=== PATIENT | female | born 1935 | race African-American/Black ===

== ENCOUNTER 2019-02-08 16:56 | Emergency (ER) | payer MEDICARE, OTHER ==
[~2019-02-08] VITALS: Ht 157.5 cm; Wt 74.4 kg
[~2019-02-08 16:56] MED LIST: AMLO10TA7 PO; ATOR40TA PO; MELO-107 PO; PENT400T12 PO
--- NOTE | 2019-02-08 16:56 | NUR ---
PT BIBFAMILY FOR LT FEMORAL BLEED AFTER PROCEDURE; PT AAOX4, PT ON MONITOR ,VSS, NAD NOTED, PENDING ER PROVIDER EVAL
[2019-02-08 18:11] LABS: BASOPHILS % (AUTO) 0.6 % (0.0-2.0); HEMATOCRIT 29 % (33-45); HEMOGLOBIN 9.6 g/dL (11.5-14.8); LYMPHOCYTES # (AUTO) 1.3 /CMM (0.8-4.8); LYMPHOCYTES % (AUTO) 21.7 % (20.0-44.0); MEAN CORPUSCULAR HGB CONC 33 g/dl (31.0-36.0); MEAN CORPUSCULAR VOLUME 92 fL (82-100); MONOCYTES # (AUTO) 0.5 /CMM (0.1-1.30); MONOCYTES % (AUTO) 7.7 % (2.0-12.0); NEUTROPHILS # (AUTO) 4.1 /CMM (1.8-8.9); PLATELET COUNT (AUTO) 135 /CMM (150-450); RED BLOOD CELL COUNT(AUTO) 3.17 MIL/uL (4.0-5.2)
[2019-02-08 18:17] LABS: CARBON DIOXIDE 28 mmol/L (21-32); CHLORIDE 111 mmol/L (98-107); CREATININE 1.1 mg/dL (0.6-1.3); GLUCOSE 202 mg/dL (74-106); SODIUM SERUM 144 mmol/L (136-145); UREA NITROGEN, BLOOD 20 mg/dL (7-18)
[2019-02-08 23:10] VITALS: BP 149/60
--- NOTE | 2019-02-08 23:10 | NUR ---
Patient discharged to home in stable condition. Written and verbal after care instructions given. Patient verbalizes understanding of instruction.
[2019-02-08 23:12] LABS: BASOPHILS % (AUTO) 0.8 % (0.0-2.0); EOSINOPHILS % (AUTO) 4.3 % (0.0-6.0); HEMATOCRIT 26 % (33-45); HEMOGLOBIN 8.8 g/dL (11.5-14.8); LYMPHOCYTES # (AUTO) 1.5 /CMM (0.8-4.8); MEAN CORPUSCULAR HGB CONC 34 g/dl (31.0-36.0); MEAN CORPUSCULAR VOLUME 91 fL (82-100); MONOCYTES # (AUTO) 0.4 /CMM (0.1-1.30); MONOCYTES % (AUTO) 7.9 % (2.0-12.0); NEUTROPHILS # (AUTO) 3.4 /CMM (1.8-8.9); PLATELET COUNT (AUTO) 134 /CMM (150-450); RED BLOOD CELL COUNT(AUTO) 2.84 MIL/uL (4.0-5.2); WHITE BLOOD COUNT (AUTO) 5.6 K/uL (4.3-11.0)
== END 2019-02-08 23:10 | disposition home or self-care (01) ==
LOC: ER 16:56
DX: T82.838A Hemorrhage due to vascular prosthetic devices, implants and grafts, initial encounter (principal); I10 Essential (primary) hypertension; E11.9 Type 2 diabetes mellitus without complications; M19.90 Unspecified osteoarthritis, unspecified site; Z98.890 Other specified postprocedural states; Z79.899 Other long term (current) drug therapy
CPT/HCPCS: 36415; 76882; 80048; 85025 ×2; 85730; 99284; A4606

== ENCOUNTER 2020-04-06 10:56 | Inpatient (IN) | payer MEDICARE, OTHER ==
[~2020-04-06] VITALS: Ht 162.6 cm; Wt 73.9 kg
[~2020-04-06 10:56] MED LIST changes: -PENT400T12 PO; +PENT400T17 PO
--- NOTE | 2020-04-06 11:05 | NUR ---
PT BIB SELF C/O "Wound on Right lower leg xcouple months NOT healing" PT IS AAOX4, NOT IN RESPIRATORY DISTRESS, HOOKED TO BARIATRIC NURSE, KEPT RESTED AND COMFORTABLE, WILL CONTINUE TO MONITOR.
--- NOTE | 2020-04-06 11:20 | NUR ---
PT SEEN AND EXAMINED BY .
--- NOTE | 2020-04-06 11:30 | NUR ---
IV LINE ESTABLISHED BLOOD DRAWN AND SENT TO LAB.
[2020-04-06 11:35] LABS: BASOPHILS # (AUTO) 0.1 /CMM (0.0-0.2); BASOPHILS % (AUTO) 0.8 % (0.0-2.0); EOSINOPHILS % (AUTO) 3.8 % (0.0-6.0); HEMATOCRIT 34 % (33-45); HEMOGLOBIN 11.3 g/dL (11.5-14.8); LYMPHOCYTES # (AUTO) 1.7 /CMM (0.8-4.8); LYMPHOCYTES % (AUTO) 22.2 % (20.0-44.0); MEAN CORPUSCULAR HGB CONC 33 g/dl (31.0-36.0); MEAN CORPUSCULAR VOLUME 93 fL (82-100); MONOCYTES # (AUTO) 0.5 /CMM (0.1-1.30); MONOCYTES % (AUTO) 6.6 % (2.0-12.0); NEUTROPHILS # (AUTO) 5.2 /CMM (1.8-8.9); NEUTROPHILS % (AUTO) 66.6 % (43.0-81.0); PLATELET COUNT (AUTO) 163 /CMM (150-450); RED BLOOD CELL COUNT(AUTO) 3.68 MIL/uL (4.0-5.2); WHITE BLOOD COUNT (AUTO) 7.9 K/uL (4.3-11.0)
--- NOTE | 2020-04-06 11:35 | NUR ---
URINAL GIVEN BUT UNABLE TO PROVIDE URINE SPECIMEN THIS TIME.
--- NOTE | 2020-04-06 11:40 | NUR ---
WOUND CLEANING AND DRESSING DONE.
[2020-04-06 11:48] LABS: ALBUMIN 3.1 g/dL (3.4-5.0); BILIRUBIN,DIRECT 0.1 mg/dL (0.0-0.2); BILIRUBIN,TOTAL 0.5 mg/dL (0.2-1.0); CALCIUM, SERUM 9.2 mg/dL (8.5-10.1); CREATININE 1.3 mg/dL (0.6-1.3); POTASSIUM 4.5 mmol/L (3.5-5.1)
--- NOTE | 2020-04-06 11:50 | NUR ---
HUMAN RESOURCES MGR AT BEDSIDE FOR XRAY.
[2020-04-06] MEDS ORDERED: ATOR40TA PO (12:05)
[2020-04-06] MEDS ORDERED: AMLO10TA7 PO (12:05)
[2020-04-06] MEDS ORDERED: CLOP75TA15 PO (12:05)
[2020-04-06] MEDS ORDERED: GABA-534 PO (12:05)
--- NOTE | 2020-04-06 12:08 | NUR ---
PAGED [facility].
[2020-04-06] MEDS ORDERED: PIPERACILLIN /TAZOBACTAM 3.375 G in IV D5W 50 ML IV ONE (12:30)
[2020-04-06] MEDS ORDERED: VANCOMYCIN 1 GM in IV D5W 250 ML IV ONE (12:30)
--- NOTE | 2020-04-06 13:08 | NUR ---
COVID SWAB OBTAINED AND SENT TO LAB.
[2020-04-06 16:00] VITALS: BP 160/60
--- NOTE | 2020-04-06 16:00 | NUR ---
REPORT GIVEN TO LAURA RITTER FOR ANSHU.
--- NOTE | 2020-04-06 16:01 | NUR ---
NURSING SUP GAVE 116-1.
--- NOTE | 2020-04-06 16:19 | NUR ---
FILEMON ELECTRONEURODIAGNOSTIC TECHNOLOGIST AT BEDSIDE FOR EVAL.
[2020-04-06] MEDS ORDERED: MAGNESIUM HYDROXIDE 30 ML UDC PO PRN (17:30)
[2020-04-06] MEDS ORDERED: DEXTROSE 50%-WATER 50 ML DISP.SYRIN IV PRN (17:30)
[2020-04-06] MEDS ORDERED: Z GUARD REMEDY 2 OZ OINT TP PRN (17:30)
[2020-04-06] MEDS ORDERED: ZOLPIDEM TARTRATE 5 MG TABLET PO PRN (17:30)
[2020-04-06] MEDS ORDERED: HYDROCODONE/APAP 5/325MG TABLET PO PRN (17:30)
[2020-04-06] MEDS ORDERED: ACETAMINOPHEN 325 MG TABLET PO PRN (17:30)
[2020-04-06] MEDS ORDERED: ONDANSETRON HCL/PF 4 MG/2 ML VIAL IVP PRN (17:30)
[2020-04-06] MEDS ORDERED: FEE PK DOSING 1 MIN EA MC ONE (17:57)
[2020-04-06] MEDS: GABAPENTIN 300 MG CAPSULE PO SCH (18:15)
[2020-04-06] MEDS: BLOOD SUGAR DIAGNOSTIC 1 EACH STRIP IN SCH ×2 (18:15→21:31)
[2020-04-06] MEDS: ATORVASTATIN 40 MG TABLET PO SCH (18:15)
[2020-04-06] MEDS: ZOSYN IVPB 2.25 G in IV D5W 50ml IV SCH ×2 (18:26→23:25)
[2020-04-06] MEDS: INSULIN REGULAR, HUMAN 100 UNIT/ML 3 ML VIAL SQ PRN ×2 (18:26→21:31)
[2020-04-06] MEDS ORDERED: IV NS 0.9% 250 ML IV PRN (18:30)
[2020-04-06] MEDS ORDERED: IV NS 0.9% 250 ML IV ONE (18:30)
--- NOTE | 2020-04-06 18:52 | NUR ---
Patient arrived via stretcher from ED. Denies any discomfort. Blood Sugar and blood pressure checked. right lower leg wound cleansed and applied dressing. IV intact , ATB started. Patient eating dinner with good appetite. Safety measures provided. Will cont to monitor
--- NOTE | 2020-04-06 19:20 | NUR ---
RN OPENING TELE NOTES RECEIVED PT ON BED AWAKE A/0 X 3 ON RA TOLERATING WELL ON SPO2@ 96% ON TELE MONITOR OF SR 60'S- 70'S NO PAIN COMPLAINT AT THIS TIME, WITH IV LAC # 20 PATENT AND FLUSHED NO INFILTRATION NOTED ON DROPLET ISOLATION TO R/O COVID 19, SAFETY MEASURE MAINTAINED BED ON LOWEST POSITION AND LOCK SIDE RAILS UP X2 CALL LIGHT WITHIN REACH WILL CONT TO MONITOR THE PT
[2020-04-06 20:00] VITALS: BP 167/79
[2020-04-06] MEDS: hydrALAZINE HCL IV 20 MG VIAL IV PRN (22:01)
[2020-04-07] VITALS: BP 139/71
[2020-04-07] MEDS: hydrALAZINE HCL IV 20 MG VIAL IV PRN ×2 (03:55→15:18)
[2020-04-07 04:00] VITALS: BP 171/75
[2020-04-07] MEDS: ZOSYN IVPB 2.25 G in IV D5W 50ml IV SCH ×4 (05:32→23:25)
--- NOTE | 2020-04-07 06:34 | NUR ---
RN CLOSING NOTES PT SLEEPING ON BED NO SIGN AND SYMPTOMS OF RESPIRATORY DISTRESS SPO2>95%, ON TELE MONITOR WITH READING SR 80'S NO PAIN COMPLAINT DROPLET ISOLATION MAINTAINED FOR R/O COVID PENDING RESULT NO SIGNIFICANT CHANGES ON CONDITION NOTED ALL NEEDS ATTENDED SAFETY MEASURE MAINTAINED CALL LIGHT WITHIN REACH WILL ENDORSED TO AM SHIFT NURSE
[2020-04-07] MEDS: BLOOD SUGAR DIAGNOSTIC 1 EACH STRIP IN SCH ×4 (06:58→22:17)
[2020-04-07] MEDS: INSULIN REGULAR, HUMAN 100 UNIT/ML 3 ML VIAL SQ PRN ×3 (06:59→22:19)
[2020-04-07 07:20] LABS: BASOPHILS # (AUTO) 0.1 /CMM (0.0-0.2); BASOPHILS % (AUTO) 0.7 % (0.0-2.0); EOSINOPHILS % (AUTO) 4.5 % (0.0-6.0); HEMATOCRIT 34 % (33-45); HEMOGLOBIN 11.3 g/dL (11.5-14.8); LYMPHOCYTES # (AUTO) 2.1 /CMM (0.8-4.8); LYMPHOCYTES % (AUTO) 26.2 % (20.0-44.0); MEAN CORPUSCULAR HGB CONC 33 g/dl (31.0-36.0); MEAN CORPUSCULAR VOLUME 93 fL (82-100); MONOCYTES # (AUTO) 0.5 /CMM (0.1-1.30); MONOCYTES % (AUTO) 6.3 % (2.0-12.0); NEUTROPHILS % (AUTO) 62.3 % (43.0-81.0); PLATELET COUNT (AUTO) 138 /CMM (150-450); RED BLOOD CELL COUNT(AUTO) 3.72 MIL/uL (4.0-5.2)
[2020-04-07 07:45] LABS: CALCIUM, SERUM 8.9 mg/dL (8.5-10.1); CREATININE 1.1 mg/dL (0.6-1.3); MAGNESIUM 1.9 mg/dL (1.8-2.4); PHOSPHORUS 2.4 mg/dL (2.5-4.9); POTASSIUM 3.6 mmol/L (3.5-5.1)
[2020-04-07 08:00] VITALS: BP 132/68
--- NOTE | 2020-04-07 08:00 | NUR ---
digital proofing and platemaker notes patient in bed, not in acute distress. denies any pain or discomfort. Breakfast taken with good appetite. Safety measures maintained at all times. No s/s of hypo/hyperglycemia noted
[2020-04-07] MEDS: AMLODIPINE BESYLATE 5 MG TABLET PO SCH (09:21)
[2020-04-07] MEDS: CLOPIDOGREL BISULFATE 75 MG TABLET PO SCH (09:21)
[2020-04-07 12:00] VITALS: BP 169/60
[2020-04-07] MEDS ORDERED: NEUTRA PHOS 1 POWD.PACKET PO ONE (12:00)
[2020-04-07] MEDS: VANCOMYCIN HCL 0.75 GM in IV D5W 250 ML IV SCH (13:13)
[2020-04-07 16:00] VITALS: BP 121/60
[2020-04-07] MEDS: GABAPENTIN 300 MG CAPSULE PO SCH (17:20)
[2020-04-07] MEDS: ATORVASTATIN 40 MG TABLET PO SCH (17:20)
--- NOTE | 2020-04-07 19:29 | NUR ---
nurse ob notes Patient in bed, not in acute distress. Denies any pain or discomfort, All needs attended. Safety measures intact. Dinner taken with good appetite. Endorsed to assistant shift supervisor RN
--- NOTE | 2020-04-07 19:35 | NUR ---
RN OPENING NOTES PATIENT RECEIVED RESTING IN BED A/O X 4. STABLE ON RA WITH BREATHING EVEN AND UNLABORED, NO SOB NOTED. NO SIGNS OF ACUTE DISTRESS. NO COMPLAINTS OF PAIN OR DISCOMFORT. IV LOCATED ON LFA #20. SAFETY PRECAUTIONS IN PLACE WITH BED IN LOWEST POSITION, CALL LIGHT WITHIN REACH BREAKS ON, SIDE RAILS UP. WILL CONTINUE TO MONITOR THROUGHOUT THE NIGHT.
[2020-04-07 20:00] VITALS: BP 141/64
[2020-04-08 04:00] VITALS: BP 152/76
[2020-04-08] MEDS: ZOSYN IVPB 2.25 G in IV D5W 50ml IV SCH ×3 (05:25→17:39)
--- NOTE | 2020-04-08 06:51 | NUR ---
RN CLOSING NOTES PATIENT RESTING IN BED A/O X 4. STABLE ON RA WITH BREATHING EVEN AND UNLABORED, NO SOB NOTED. NO SIGNS OF ACUTE DISTRESS. NO COMPLAINTS OF PAIN OR DISCOMFORT. IV LOCATED ON [facility] #20. SAFETY PRECAUTIONS IN PLACE WITH BED IN LOWEST POSITION, CALL LIGHT WITHIN REACH BREAKS ON, SIDE RAILS UP. PATIENT WAS KEPT CLEAN AND DRY THROUGHOUT THE NIGHT, ALL NEEDS ATTENDED TO. WILL ENDORSE TO ONCOMING SHIFT ABOUT ANSHU.
[2020-04-08] MEDS: BLOOD SUGAR DIAGNOSTIC 1 EACH STRIP IN SCH ×4 (06:53→23:03)
[2020-04-08 07:26] LABS: CALCIUM, SERUM 8.9 mg/dL (8.5-10.1); CREATININE 1.1 mg/dL (0.6-1.3); POTASSIUM 3.7 mmol/L (3.5-5.1)
[2020-04-08 08:00] VITALS: BP 151/75
--- NOTE | 2020-04-08 08:00 | NUR ---
RN OPENING NOTES RECEIVED PT. IN BED. PT. A&OX4. PT. ON ROOM AIR, SATURATING WELL AT 95%. PT. IV ACCESS IN L. HAND, SALINE LOCK, INTACT, PATENT, FLUSHED WELL. PT. SAFETY MAINTAINED. CALL LIGHT WITHIN REACH. PT. AMBULATORY WITH WALKER, BUT REMINDED TO USE CALL LIGHT AND CALL FOR ASSISTANCE WHEN NEEDED. WILL CONTINUE TO MONITOR.
[2020-04-08] MEDS: AMLODIPINE BESYLATE 5 MG TABLET PO SCH (08:08)
[2020-04-08] MEDS: CLOPIDOGREL BISULFATE 75 MG TABLET PO SCH (08:08)
--- NOTE | 2020-04-08 09:00 | NUR ---
WOUND CARE CONSULT: PT PRESENTS WITH RT LOWER LEG WOUND WITH NECROTIC TISSUE, SCARRING TO RT ANKLE AND TO LEFT LOWER LEG, PRESENT ON ADMISSION. RECOMMEND DPM CONSULT. DR TURK NOTIFIED OF CONSULT REQUEST. PT IS INDEPENDENT WITH BED MOBILITY AND IS CONTINENT. WILL SEE PRN. IN AGREEMENT WITH PLAN OF CARE. CURRENT ANDRIY SCORE IS 20.
[2020-04-08] MEDS: INSULIN REGULAR, HUMAN 100 UNIT/ML 3 ML VIAL SQ PRN ×3 (11:58→23:04)
[2020-04-08 12:00] VITALS: BP 112/71
[2020-04-08] MEDS: VANCOMYCIN HCL 0.75 GM in IV D5W 250 ML IV SCH (13:13)
--- NOTE | 2020-04-08 15:50 | NUR ---
M/S RN NOTES PATIENT TRANSFERRED TO 3W ROOM 315-1. REPORT GIVEN TO LAURA BALDWIN. PATIENT IN NO ACUTE DISTRESS, NO C/O PAIN AT THIS TIME. SKIN WARM TO TOUCH, RT LEG WOUND CLEAN AND WITH DRESSING C/D/I. IV ACCESS SITE ON THE RT HAND #22G, INTACT AND PATENT. BELONGINGS ACCOUNTED FOR AND SENT WITH PATIENT. PATIENT TRANSFERRED VIA WHEELCHAIR.
--- NOTE | 2020-04-08 16:20 | NUR ---
RN NOTES RECEIVED PATIENT FROM [facility] REPORT GIVEN BY STEPHAN SANCHEZ. PATIENT ALERT ORIENTED X 4.VITAL SIGNS WITHIN NORMAL LIMITS. NO ACUTE DISTRESS NOTED. IV ACCESS PATENT AND INTACT, NO REDNESS OR SWELLING NOTED. SAFETY MEASURES IN PLACE. WILL CONTINUE TO MONITOR ACCORDINGLY.
[2020-04-08] MEDS: ATORVASTATIN 40 MG TABLET PO SCH (17:31)
[2020-04-08] MEDS: GABAPENTIN 300 MG CAPSULE PO SCH (17:31)
[2020-04-08 18:00] VITALS: BP 146/89
--- NOTE | 2020-04-08 19:00 | NUR ---
MS RN NOTES PATIENT IN BED ALERT ORIENTED X 4. NO ACUTE DISTRESS NOTED. IV ACCESS PATENT AND INTACT, NO REDNESS OR SWELLING NOTED.NEEDS ATTENDED AND ANTICIPATED. SAFETY MEASURES IN PLACE. WILL ENDORSE TO NIGHT NURSE FOR CONTINUITY OF CARE.
--- NOTE | 2020-04-08 19:57 | NUR ---
MS RN NOTES RECEIVED PATIENT AWAKE ALERT PATIENT ALERT ORIENTED X 4.VITAL SIGNS WITHIN NORMAL LIMITS. NO ACUTE DISTRESS NOTED. DENIES ANY PAIN OR DISCOMFORT AT THIS TIME, IV ACCESS PATENT AND INTACT, NO REDNESS OR SWELLING NOTED. SAFETY MEASURES IN PLACE. ASPIRATION PRECAUTION EMPHASIZED, CALL LIGHT WITH IN EASY REACH, BED IN LOW LOCKED POSITION, WILL CONTINUE TO MONITOR ACCORDINGLY.
[2020-04-08 20:00] VITALS: BP 161/79
[2020-04-08 20:52] VITALS: BP 161/79
[2020-04-09] MEDS: ZOSYN IVPB 2.25 G in IV D5W 50ml IV SCH ×4 (00:03→18:43)
[2020-04-09] MEDS: BLOOD SUGAR DIAGNOSTIC 1 EACH STRIP IN SCH ×4 (06:57→22:24)
[2020-04-09] MEDS: INSULIN REGULAR, HUMAN 100 UNIT/ML 3 ML VIAL SQ PRN ×3 (06:58→22:27)
--- NOTE | 2020-04-09 07:03 | NUR ---
RN NOTES ALL NEEDS ATTENDED AND MET, ABLE TO REST AND SLEPT AT INTERVALS. SAFETY MEASURES IN PLACE, CALL LIGHT WITHIN EASY REACH. IV ACCESS PULLED POUT, RE INSERTED ON HER RIGHT HAND G#22, INTACT AND PATENT. WILL ENDORSE TO AM NURSE FOR CONTINUITY OF CARE.
[2020-04-09 07:09] LABS: CALCIUM, SERUM 9.1 mg/dL (8.5-10.1); POTASSIUM 3.9 mmol/L (3.5-5.1)
--- NOTE | 2020-04-09 07:35 | NUR ---
MS/RN NOTE THE PATIENT IS RECEIVED IN BED. A/O X4. DENIES PAIN, DENIES SOB. RESPIRATION REGULAR AND UNLABORED. THE PATIENT IN ROOM AIR. RIGHT HAND G 22 PATENT AND SALINE LOCKED. BED LOW AND LOCKED. SIDE RAILS UP X2. CALL LIGHT WITHIN REACH. WILL CONTINUE TO MONITOR.
--- NOTE | 2020-04-09 07:43 | NUR ---
BOOKING CLERK WOUND TREATMENT ORDERS CLARIFIED WITH DPM. DISCUSSED WITH PHOTOVOLTAIC SOLAR CELL DESIGNER AND PHARMACY.
[2020-04-09 08:00] VITALS: BP 152/67
[2020-04-09] MEDS: AMLODIPINE BESYLATE 5 MG TABLET PO SCH (08:32)
[2020-04-09] MEDS: CLOPIDOGREL BISULFATE 75 MG TABLET PO SCH (08:32)
[2020-04-09] MEDS: THERAHONEY GEL 1.5 OZ TUBE TP SCH (12:29)
[2020-04-09] MEDS: VANCOMYCIN HCL 0.75 GM in IV D5W 250 ML IV SCH (13:56)
--- NOTE | 2020-04-09 15:54 | NUR ---
MS/RN NOTE RIGHT THIGH WOUND C/GS ORDERED BY DR OLMBARDO. THE ORDER IS READ BACK, VERIFIED. NOTED AND CARRIED OUT.
[2020-04-09 16:00] VITALS: BP 158/85
--- NOTE | 2020-04-09 16:00 | NUR ---
m/s creel hand: notes dr. storm here and informed me to cancel his order for right leg wound culture due to previous collection as stated.
[2020-04-09] MEDS: GABAPENTIN 300 MG CAPSULE PO SCH (18:42)
[2020-04-09] MEDS: ATORVASTATIN 40 MG TABLET PO SCH (18:42)
--- NOTE | 2020-04-09 18:50 | NUR ---
MS/RN NOTE THE PATIENT IS ALERT AND ORIENTED X4. DENIES PAIN. THE PATIENT IS IN ROOM AIR AND SATURATION IS AT 98%. DENIES SOB. RESPIRATION REGULAR AND UNLABORED. THE PATIENT IN NO APPARENT DISTRESS. RLE DRESSING IN PLACE. PEDAL PULSES PRESENT. RIGHT HAND G 22 PATENT AND ORDERED ZOSYN INFUSING PER ORDER. NO S/S INFILTRATION NOTED. BED LOW AND LOCKED. SIDE RAILS UP X2. CALL LIGHT WITHIN REACH. WILL ENDORSE TO MEDICAL OFFICE REP.
--- NOTE | 2020-04-09 19:45 | NUR ---
MS/RN NOTE RECEIVED PATIENT, ALERT AND ORIENTED X4. DENIES PAIN AT THIS TIME. THE PATIENT IS IN ROOM AIR AND SATURATION IS AT 98% - 99%. DENIES SOB. BREATHING EVEN AND UNLABORED. RESPIRATION REGULAR AND UNLABORED. THE PATIENT IN NO APPARENT DISTRESS. RLE DRESSING IN PLACE. PEDAL PULSES PRESENT. RIGHT HAND G 22 PATENT AND ORDERED ZOSYN INFUSING PER ORDER. NO S/S INFILTRATION NOTED. BED LOW AND LOCKED. SIDE RAILS UP X2. CALL LIGHT WITHIN REACH. WILL CONTINUE TO MONITOR ACCORDINGLY.
[2020-04-09 20:00] VITALS: BP_SYST 160; BP_SYST 186; BP_DIAS 102; BP_DIAS 89
[2020-04-09 21:00] VITALS: BP 160/89
[2020-04-10] MEDS: ZOSYN IVPB 2.25 G in IV D5W 50ml IV SCH ×5 (00:14→23:18)
[2020-04-10 06:33] LABS: CALCIUM, SERUM 8.7 mg/dL (8.5-10.1); CREATININE 0.9 mg/dL (0.6-1.3); POTASSIUM 3.6 mmol/L (3.5-5.1)
--- NOTE | 2020-04-10 06:43 | NUR ---
MS/RN NOTE ALL NEEDS ATTENDED AND MET. PATIENT, ALERT AND ORIENTED X4. DENIES PAIN AT THIS TIME. THE PATIENT IS IN ROOM AIR AND SATURATION IS AT 97% - 99%. DENIES SOB. BREATHING EVEN AND UNLABORED. RESPIRATION REGULAR AND UNLABORED. THE PATIENT IN NO APPARENT DISTRESS. RLE DRESSING IN PLACE. PEDAL PULSES PRESENT. RIGHT HAND G 22 PATENT AND ORDERED ZOSYN INFUSING PER ORDER. NO S/S INFILTRATION NOTED. BED LOW AND LOCKED. SIDE RAILS UP X2. CALL LIGHT WITHIN EASY REACH. WILL ENDORSE TO AM NURSE FOR CONTINUITY OF CARE.
--- NOTE | 2020-04-10 07:35 | NUR ---
MS RN OPENING NOTE RECEIVED PATIENT IN BED RESTING COMFORTABLY. PATIENT IN NO ACUTE DISTRESS. NO SOB NOTED. PATIENT BREATHING IS EVEN AND UNLABORED. PATIENT SAFETY PRECAUTIONS IN PLACE. PATIENT STATES NO PAIN AT THIS TIME. PATIENT BED ALARM IS ON. PATIENT BED IS LOCKED AND IN LOWEST POSITION. CALL LIGHT WITHIN REACH. WILL CONTINUE TO MONITOR.
[2020-04-10] MEDS: BLOOD SUGAR DIAGNOSTIC 1 EACH STRIP IN SCH ×4 (07:39→22:06)
[2020-04-10 08:00] VITALS: BP 141/73
[2020-04-10] MEDS: THERAHONEY GEL 1.5 OZ TUBE TP SCH (09:12)
[2020-04-10] MEDS: CLOPIDOGREL BISULFATE 75 MG TABLET PO SCH (09:12)
[2020-04-10] MEDS: AMLODIPINE BESYLATE 5 MG TABLET PO SCH (09:12)
[2020-04-10] MEDS: INSULIN REGULAR, HUMAN 100 UNIT/ML 3 ML VIAL SQ PRN ×3 (12:06→22:05)
[2020-04-10 12:09] LABS: BASOPHILS # (AUTO) 0.1 /CMM (0.0-0.2); BASOPHILS % (AUTO) 1.1 % (0.0-2.0); EOSINOPHILS % (AUTO) 4.6 % (0.0-6.0); HEMATOCRIT 32 % (33-45); HEMOGLOBIN 10.6 g/dL (11.5-14.8); LYMPHOCYTES # (AUTO) 1.9 /CMM (0.8-4.8); LYMPHOCYTES % (AUTO) 26.2 % (20.0-44.0); MEAN CORPUSCULAR HGB CONC 33 g/dl (31.0-36.0); MEAN CORPUSCULAR VOLUME 93 fL (82-100); MONOCYTES # (AUTO) 0.5 /CMM (0.1-1.30); MONOCYTES % (AUTO) 7.6 % (2.0-12.0); NEUTROPHILS # (AUTO) 4.3 /CMM (1.8-8.9); NEUTROPHILS % (AUTO) 60.5 % (43.0-81.0); PLATELET COUNT (AUTO) 138 /CMM (150-450); RED BLOOD CELL COUNT(AUTO) 3.47 MIL/uL (4.0-5.2); WHITE BLOOD COUNT (AUTO) 7.2 K/uL (4.3-11.0)
[2020-04-10] MEDS: VANCOMYCIN HCL 0.75 GM in IV D5W 250 ML IV SCH (13:14)
[2020-04-10 16:00] VITALS: BP 176/97
[2020-04-10] MEDS: GABAPENTIN 300 MG CAPSULE PO SCH (17:54)
[2020-04-10] MEDS: ATORVASTATIN 40 MG TABLET PO SCH (17:54)
--- NOTE | 2020-04-10 19:13 | NUR ---
MS RN NOTES PATIENT IN BED, AWAKE, ALERT AND ORIENTED X 4. CONFUSED AT TIMES. BREATHING EVEN AND UNLABORED ON ROOM AIR. SHOWS NO SIGNS OF ACUTE RESPIRATORY DISTRESS, NO ACUTE PAIN. IV ON L FOREARM 24G RUNNING ZOSYN. SHOWS NO SIGNS OF INFILTRATION, NO REDNESS. SAFETY PRECAUTIONS IN PLACE. BED IN LOWEST POSITION, LOCKED, AND CALL LIGHT KEPT WITHIN REACH. WILL CONTINUE TO MONITOR.
--- NOTE | 2020-04-10 19:20 | NUR ---
MS RN CLOSING NOTE PATIENT IN BED RESTING COMFORTABLY. PATIENT IN NO ACUTE DISTRESS. NO SOB NOTED. PATIENT BREATHING IS EVEN AND UNLABORED. PATIENT SAFETY PRECAUTIONS IN PLACE. PATIENT STATES NO PAIN AT THIS TIME. PATIENT WOUND CARE PROVIDED ORDERED. PATIENT KEPT CLEAN, DRY AND COMFORTABLE THROUGHOUT SHIFT. PATIENT BED ALARM IS ON. PATIENT BED IS LOCKED AND IN LOWEST POSITION. CALL LIGHT WITHIN REACH. WILL ENDORSE CARE TO PM SHIFT FOR ANSHU.
[2020-04-10 19:30] VITALS: BP 143/77
[2020-04-10 20:00] VITALS: BP 143/77
[2020-04-11] MEDS: ZOSYN IVPB 2.25 G in IV D5W 50ml IV SCH ×2 (05:09→12:25)
--- NOTE | 2020-04-11 06:36 | NUR ---
MS RN NOTES PATIENT IN BED, AWAKE, ALERT AND ORIENTED X 4. CONFUSED AT TIMES. BREATHING EVEN AND UNLABORED ON ROOM AIR. SHOWS NO SIGNS OF ACUTE RESPIRATORY DISTRESS, NO ACUTE PAIN. IV ON R FOREARM 22G, CLEAN DRY AND INTACT. SHOWS NO SIGNS OF INFILTRATION, NO REDNESS. ALL DUE MEDICATIONS GIVEN. SAFETY PRECAUTIONS IN PLACE. BED IN LOWEST POSITION, LOCKED, AND CALL LIGHT KEPT WITHIN REACH. WILL ENDORSE TO ONCOMING NURSE.
[2020-04-11] MEDS: BLOOD SUGAR DIAGNOSTIC 1 EACH STRIP IN SCH ×2 (06:37→12:31)
--- NOTE | 2020-04-11 07:10 | NUR ---
MS RN NOTES RECEIVED PATIENT SITTING UP IN BED, ALERT AND AWAKE ORIENTED X2-3 WITH EPISODES OF FORGETFULNESS. HOB ELEVATED. DENIES ANY C/O PAIN NOR DISCOMFORT AT THIS TIME. RFA # 22 SL INTACT AND PATENT. BED IN LOWEST POSITION, LOCKED. BED ALARM ON. CALL LIGHT WITHIN REACH. ABLE TO VERBALIZE NEEDS.
[2020-04-11 07:19] LABS: CALCIUM, SERUM 9.3 mg/dL (8.5-10.1); POTASSIUM 4.9 mmol/L (3.5-5.1)
[2020-04-11 08:00] VITALS: BP 164/100
[2020-04-11 08:24] VITALS: BP 143/73
[2020-04-11] MEDS: CLOPIDOGREL BISULFATE 75 MG TABLET PO SCH (08:24)
[2020-04-11] MEDS: AMLODIPINE BESYLATE 5 MG TABLET PO SCH (08:24)
[2020-04-11] MEDS: THERAHONEY GEL 1.5 OZ TUBE TP SCH (08:25)
[2020-04-11] MEDS: INSULIN REGULAR, HUMAN 100 UNIT/ML 3 ML VIAL SQ PRN (12:31)
--- NOTE | 2020-04-11 12:31 | NUR ---
MS RN NOTES BS 146MG/DL, PATIENT REFUSED INSULIN DESPITE OF EDUCATION AND EXPLANATIONS.
[2020-04-11] MEDS ORDERED: AMOX-430 PO (13:51)
--- NOTE | 2020-04-11 15:30 | NUR ---
MS RN NOTES PATIENT FOR DISCHARGED, DISCHARGED INSTRUCTIONS GIVEN TO SOLOMON (DTR- [phone]) AND ALSO EXPLAINED TO PATIENT WITH DISCHARGED PACKET GIVEN TO PATIENT. WOUND CARE TO RIGHT LOWER LEG DONE VEGA WELL. PATIENT REFUSED PICTURE TO BE TAKEN TO LEFT ARM DUE TO ALREADY DRESSED AND DOES NOT WANT TO TAKE OFF CLOTHING. OBSERVED PATIENT AMBULATING IN UNIT HALLWAY WITH WALKER WITH STEADY GAIT. ALL BELONGINGS ACCOUNTED FOR. IV ACCESS TO RFA REMOVED WITH CATHETER TIP INTACT WITH GAUZE DRESSING IN PLACE. PATIENT LEFT IN STABLE CONDITION AND PICKED UP BY DAUGHTER SOLOMON IN PRIVATE VEHICLE.
== END 2020-04-11 15:20 | disposition home health service (06) | DRG 571 ==
LOC: ER 10:58 → MEDSG1 16:23 → TELE1 17:11 → MEDSG1 04-07 22:03 → MED 04-08 16:29
PROVIDERS: ADMIT Nurse Practitioner Acute Care; ATTEND Nurse Practitioner Acute Care
PROC: 0JBN0ZZ Excision of Right Lower Leg Subcutaneous Tissue and Fascia, Open Approach (ICD-10-PCS; principal; 2020-04-09)
DX: S81.801A Unspecified open wound, right lower leg, initial encounter (principal); L97.919 Non-pressure chronic ulcer of unspecified part of right lower leg with unspecified severity; I74.3 Embolism and thrombosis of arteries of the lower extremities; J98.11 Atelectasis; E11.622 Type 2 diabetes mellitus with other skin ulcer; E11.40 Type 2 diabetes mellitus with diabetic neuropathy, unspecified; E78.5 Hyperlipidemia, unspecified; I10 Essential (primary) hypertension; E11.42 Type 2 diabetes mellitus with diabetic polyneuropathy; E11.51 Type 2 diabetes mellitus with diabetic peripheral angiopathy without gangrene; Z98.62 Peripheral vascular angioplasty status; Z79.02 Long term (current) use of antithrombotics/antiplatelets; Z79.899 Other long term (current) drug therapy; M50.30 Other cervical disc degeneration, unspecified cervical region; Z95.2 Presence of prosthetic heart valve; L08.9 Local infection of the skin and subcutaneous tissue, unspecified; E11.621 Type 2 diabetes mellitus with foot ulcer; L97.519 Non-pressure chronic ulcer of other part of right foot with unspecified severity; M19.90 Unspecified osteoarthritis, unspecified site; D69.6 Thrombocytopenia, unspecified; D63.8 Anemia in other chronic diseases classified elsewhere; B96.89 Other specified bacterial agents as the cause of diseases classified elsewhere; M85.80 Other specified disorders of bone density and structure, unspecified site; Z82.3 Family history of stroke; Z83.3 Family history of diabetes mellitus; X58.XXXA Exposure to other specified factors, initial encounter; Y92.9 Unspecified place or not applicable
CPT/HCPCS: 36415; 71045-TC; 73590-TC; 80048-TC; 80061-TC; 80076-TC; 80202-TC; 82962-TC; 83605-TC; 83735-TC; 84100-TC; 85025-TC; 85652-TC; 85730-TC; 86140-TC; 87040-TC; 87070-TC; 87081-TC; 87186-TC; 93926-TC; A4217; A6403; G0378; J0360; J1815; J2543; J3370; J7050; J7060

== ENCOUNTER 2020-04-19 12:45 | Outpatient (CLI) | payer MEDICARE, OTHER ==
[~2020-04-19 12:45] MED LIST changes: +AMOX-430 PO; +CLOP75TA15 PO; +GABA-534 PO; -MELO-107 PO; -PENT400T17 PO
== END 2020-04-19 23:59 | disposition home health service (06) ==
LOC: WOU 12:45
PROVIDERS: ATTEND Podiatrist Foot & Ankle Surgery
DX: I87.311 Chronic venous hypertension (idiopathic) with ulcer of right lower extremity (principal); L97.822 Non-pressure chronic ulcer of other part of left lower leg with fat layer exposed; I87.2 Venous insufficiency (chronic) (peripheral); E11.42 Type 2 diabetes mellitus with diabetic polyneuropathy; E11.51 Type 2 diabetes mellitus with diabetic peripheral angiopathy without gangrene; R60.0 Localized edema; I10 Essential (primary) hypertension; Z95.2 Presence of prosthetic heart valve; Z79.02 Long term (current) use of antithrombotics/antiplatelets; Z79.899 Other long term (current) drug therapy
CPT/HCPCS: 11042; 82962-TC

== ENCOUNTER 2020-04-26 12:40 | Outpatient (CLI) | payer MEDICARE, OTHER | END 2020-04-26 23:59 | disposition home health service (06) | LOC: WOU 12:40 | PROVIDERS: ATTEND Podiatrist Foot & Ankle Surgery | DX: I87.311 Chronic venous hypertension (idiopathic) with ulcer of right lower extremity (principal); L97.812 Non-pressure chronic ulcer of other part of right lower leg with fat layer exposed; I87.2 Venous insufficiency (chronic) (peripheral); E11.51 Type 2 diabetes mellitus with diabetic peripheral angiopathy without gangrene; R60.0 Localized edema; Z79.02 Long term (current) use of antithrombotics/antiplatelets; Z79.899 Other long term (current) drug therapy | CPT/HCPCS: 11042 ==

== ENCOUNTER 2020-05-03 12:50 | Outpatient (CLI) | payer MEDICARE, OTHER | END 2020-05-03 23:59 | disposition home health service (06) | LOC: WOU 12:50 | PROVIDERS: ATTEND Podiatrist Foot & Ankle Surgery | DX: I87.311 Chronic venous hypertension (idiopathic) with ulcer of right lower extremity (principal); L97.812 Non-pressure chronic ulcer of other part of right lower leg with fat layer exposed; E11.42 Type 2 diabetes mellitus with diabetic polyneuropathy; E11.51 Type 2 diabetes mellitus with diabetic peripheral angiopathy without gangrene; I87.2 Venous insufficiency (chronic) (peripheral); R60.0 Localized edema; Z79.02 Long term (current) use of antithrombotics/antiplatelets; Z79.899 Other long term (current) drug therapy; I10 Essential (primary) hypertension | CPT/HCPCS: 11042 ==

== ENCOUNTER 2020-05-10 12:30 | Outpatient (CLI) | payer MEDICARE, OTHER | END 2020-05-10 23:59 | disposition home health service (06) | LOC: WOU 12:30 | PROVIDERS: ATTEND Podiatrist Foot & Ankle Surgery | DX: I87.311 Chronic venous hypertension (idiopathic) with ulcer of right lower extremity (principal); L97.812 Non-pressure chronic ulcer of other part of right lower leg with fat layer exposed; E11.42 Type 2 diabetes mellitus with diabetic polyneuropathy; E11.51 Type 2 diabetes mellitus with diabetic peripheral angiopathy without gangrene; I87.2 Venous insufficiency (chronic) (peripheral); I10 Essential (primary) hypertension; R60.0 Localized edema; Z79.02 Long term (current) use of antithrombotics/antiplatelets; Z79.899 Other long term (current) drug therapy | CPT/HCPCS: 11042 ==

== ENCOUNTER 2020-05-17 12:50 | Outpatient (CLI) | payer MEDICARE, OTHER | END 2020-05-17 23:59 | disposition home health service (06) | LOC: WOU 12:50 | PROVIDERS: ATTEND Podiatrist Foot & Ankle Surgery | DX: I87.311 Chronic venous hypertension (idiopathic) with ulcer of right lower extremity (principal); L97.812 Non-pressure chronic ulcer of other part of right lower leg with fat layer exposed; I87.2 Venous insufficiency (chronic) (peripheral); E11.42 Type 2 diabetes mellitus with diabetic polyneuropathy; E11.51 Type 2 diabetes mellitus with diabetic peripheral angiopathy without gangrene; I10 Essential (primary) hypertension; R60.0 Localized edema; Z79.02 Long term (current) use of antithrombotics/antiplatelets; Z79.899 Other long term (current) drug therapy | CPT/HCPCS: 11042 ==

== ENCOUNTER 2020-05-24 12:50 | Outpatient (CLI) | payer MEDICARE, OTHER | END 2020-05-24 23:59 | disposition home health service (06) | LOC: WOU 12:50 | PROVIDERS: ATTEND Podiatrist Foot & Ankle Surgery | DX: I87.311 Chronic venous hypertension (idiopathic) with ulcer of right lower extremity (principal); L97.312 Non-pressure chronic ulcer of right ankle with fat layer exposed; L97.812 Non-pressure chronic ulcer of other part of right lower leg with fat layer exposed; E11.42 Type 2 diabetes mellitus with diabetic polyneuropathy; E11.51 Type 2 diabetes mellitus with diabetic peripheral angiopathy without gangrene; R60.0 Localized edema; I10 Essential (primary) hypertension; Z95.2 Presence of prosthetic heart valve; Z79.02 Long term (current) use of antithrombotics/antiplatelets; Z79.899 Other long term (current) drug therapy | CPT/HCPCS: 11042 ==

== ENCOUNTER 2020-06-07 12:38 | Outpatient (CLI) | payer MEDICARE, OTHER ==
[2020-06-07 13:48] LABS: BASOPHILS # (AUTO) 0.1 /CMM (0.0-0.2); BASOPHILS % (AUTO) 1.1 % (0.0-2.0); EOSINOPHILS % (AUTO) 3.2 % (0.0-6.0); HEMATOCRIT 35 % (33-45); HEMOGLOBIN 11.3 g/dL (11.5-14.8); LYMPHOCYTES # (AUTO) 1.8 /CMM (0.8-4.8); LYMPHOCYTES % (AUTO) 24.6 % (20.0-44.0); MEAN CORPUSCULAR HGB CONC 32 g/dl (31.0-36.0); MEAN CORPUSCULAR VOLUME 91 fL (82-100); MONOCYTES # (AUTO) 0.4 /CMM (0.1-1.30); MONOCYTES % (AUTO) 5.8 % (2.0-12.0); NEUTROPHILS # (AUTO) 4.8 /CMM (1.8-8.9); NEUTROPHILS % (AUTO) 65.3 % (43.0-81.0); PLATELET COUNT (AUTO) 138 /CMM (150-450); RED BLOOD CELL COUNT(AUTO) 3.87 MIL/uL (4.0-5.2); WHITE BLOOD COUNT (AUTO) 7.4 K/uL (4.3-11.0)
[2020-06-07 14:17] LABS: ALBUMIN 3.4 g/dL (3.4-5.0); BILIRUBIN,TOTAL 0.5 mg/dL (0.2-1.0); CALCIUM, SERUM 9.3 mg/dL (8.5-10.1); CREATININE 1.2 mg/dL (0.6-1.3); POTASSIUM 3.8 mmol/L (3.5-5.1); TOTAL PROTEIN, SERUM 7.3 g/dL (6.4-8.2)
[2020-06-07 14:31] LABS: PREALBUMIN 32.9 MG/DL (18.0-35.7)
== END 2020-06-07 23:59 | disposition home health service (06) ==
LOC: WOU 12:38
PROVIDERS: ATTEND Podiatrist Foot & Ankle Surgery
DX: I87.311 Chronic venous hypertension (idiopathic) with ulcer of right lower extremity (principal); L97.812 Non-pressure chronic ulcer of other part of right lower leg with fat layer exposed; I87.2 Venous insufficiency (chronic) (peripheral); E11.51 Type 2 diabetes mellitus with diabetic peripheral angiopathy without gangrene; E11.42 Type 2 diabetes mellitus with diabetic polyneuropathy; R60.0 Localized edema; Z79.02 Long term (current) use of antithrombotics/antiplatelets; Z79.899 Other long term (current) drug therapy
CPT/HCPCS: 11042; 36415; 80053; 83036; 84134; 85025; A6452

== ENCOUNTER 2020-06-14 12:45 | Outpatient (CLI) | payer MEDICARE, OTHER | END 2020-06-14 23:59 | disposition home health service (06) | LOC: WOU 12:45 | PROVIDERS: ATTEND Podiatrist Foot & Ankle Surgery | DX: I87.311 Chronic venous hypertension (idiopathic) with ulcer of right lower extremity (principal); L97.812 Non-pressure chronic ulcer of other part of right lower leg with fat layer exposed; E11.42 Type 2 diabetes mellitus with diabetic polyneuropathy; E11.51 Type 2 diabetes mellitus with diabetic peripheral angiopathy without gangrene; I87.2 Venous insufficiency (chronic) (peripheral); R60.0 Localized edema; I10 Essential (primary) hypertension; Z79.02 Long term (current) use of antithrombotics/antiplatelets; Z79.899 Other long term (current) drug therapy | CPT/HCPCS: 11042; A6452 ==

== ENCOUNTER 2020-06-21 12:50 | Outpatient (CLI) | payer MEDICARE, OTHER | END 2020-06-21 23:59 | disposition home health service (06) | LOC: WOU 12:50 | PROVIDERS: ATTEND Podiatrist Foot & Ankle Surgery | DX: I87.311 Chronic venous hypertension (idiopathic) with ulcer of right lower extremity (principal); L97.812 Non-pressure chronic ulcer of other part of right lower leg with fat layer exposed; L97.512 Non-pressure chronic ulcer of other part of right foot with fat layer exposed; I87.2 Venous insufficiency (chronic) (peripheral); E11.42 Type 2 diabetes mellitus with diabetic polyneuropathy; E11.51 Type 2 diabetes mellitus with diabetic peripheral angiopathy without gangrene; R60.0 Localized edema; Z79.02 Long term (current) use of antithrombotics/antiplatelets; Z79.899 Other long term (current) drug therapy | CPT/HCPCS: 11042; A6452 ==

== ENCOUNTER 2020-06-22 14:06 | Emergency (ER) | payer MEDICARE, OTHER ==
[~2020-06-22] VITALS: Ht 144.8 cm; Wt 76.7 kg
--- NOTE | 2020-06-22 14:10 | NUR ---
BIB FAMILY, SENT BY VASCULAR MD FOR POSSIBLE DVT. TO ER BED 10, HOOKED TO MONITOR, CHANGED TO HOSP GOWN, WARM BLANKET PROVIDED, PATIENT AAO x 4, BREATHING EVEN AND UNLABORED. DENIES PAIN AT THIS TIME.
--- NOTE | 2020-06-22 14:19 | NUR ---
DR JACKSON AT BEDSIDE
--- NOTE | 2020-06-22 14:32 | NUR ---
CALLED DR. CARLY BLOOD [phone] PAGED.
[2020-06-22 14:49] LABS: BASOPHILS # (AUTO) 0.1 /CMM (0.0-0.2); BASOPHILS % (AUTO) 0.8 % (0.0-2.0); EOSINOPHILS % (AUTO) 3.7 % (0.0-6.0); HEMATOCRIT 38 % (33-45); HEMOGLOBIN 12.3 g/dL (11.5-14.8); LYMPHOCYTES # (AUTO) 2.3 /CMM (0.8-4.8); LYMPHOCYTES % (AUTO) 30.9 % (20.0-44.0); MEAN CORPUSCULAR HGB CONC 33 g/dl (31.0-36.0); MEAN CORPUSCULAR VOLUME 91 fL (82-100); MONOCYTES # (AUTO) 0.5 /CMM (0.1-1.30); MONOCYTES % (AUTO) 6.3 % (2.0-12.0); NEUTROPHILS # (AUTO) 4.3 /CMM (1.8-8.9); NEUTROPHILS % (AUTO) 58.3 % (43.0-81.0); PLATELET COUNT (AUTO) 166 /CMM (150-450); RED BLOOD CELL COUNT(AUTO) 4.15 MIL/uL (4.0-5.2); WHITE BLOOD COUNT (AUTO) 7.4 K/uL (4.3-11.0)
[2020-06-22 14:55] LABS: CALCIUM, SERUM 9.6 mg/dL (8.5-10.1); POTASSIUM 4.1 mmol/L (3.5-5.1)
[2020-06-22] MEDS ORDERED: APIXABAN 5 MG TABLET PO SCH (15:30)
--- NOTE | 2020-06-22 15:43 | NUR ---
DR JACKSON SPEAKING WITH DAUGHTER, PER DAUGHTER PATIENT NOT ON ANY BLOOD THINNERS AND DOES NOT HAVE MECHANICAL VALVE.
--- NOTE | 2020-06-22 16:03 | NUR ---
MD MADE AWARE OF BLOOD PRESSURE.
--- NOTE | 2020-06-22 16:08 | NUR ---
SPOKE TO DAUGHTER, PER DAUGHTER, PATIENT HASN'T BEEN IN ANY HYPERTENSIVE MEDICATION "HER BLOOD PRESSURE GOES UP AND DOWN. I THINK SHE IS WORRIED AND STRESSED OUT WITH ALL THAT IS HAPPENING RIGHT NOW"
--- NOTE | 2020-06-22 16:21 | NUR ---
LEIDY CHAVARRIA AT [facility] FOR [facility]
--- NOTE | 2020-06-22 16:30 | NUR ---
DIRECTOR OF RETAIL OPERATIONS AT BEDSIDE
[2020-06-22] MEDS ORDERED: AMLODIPINE BESYLATE 5 MG TABLET PO ONE (17:30)
[2020-06-22] MEDS ORDERED: AMLODIPINE BESYLATE 5 MG TABLET ONE (17:33)
--- NOTE | 2020-06-22 17:37 | NUR ---
CALLED DR GILES'S [employer]UST[employer]INE [employer] FABRICATOR DR BEYER, LEFT VOICEMAIL TO DEIRDRE TRAN.
[2020-06-22] MEDS ORDERED: ASPIRIN 81 MG TAB.CHEW ONE (17:40)
--- NOTE | 2020-06-22 17:45 | NUR ---
DR. ANGEL LUIS GILES [phone]
--- NOTE | 2020-06-22 17:52 | NUR ---
Patient discharged to home with daughter in stable condition. Written and verbal after care instructions given. Patient and daughter verbalizes understanding of instruction.
[2020-06-22 17:57] VITALS: BP 176/73
[2020-06-22] MEDS ORDERED: ASPIRIN 81 MG TAB.CHEW PO ONE (18:00)
== END 2020-06-22 17:57 | disposition home or self-care (01) ==
LOC: ER 14:06
DX: I82.591 Chronic embolism and thrombosis of other specified deep vein of right lower extremity (principal); R93.89 Abnormal findings on diagnostic imaging of other specified body structures; I10 Essential (primary) hypertension; E11.9 Type 2 diabetes mellitus without complications; Z95.4 Presence of other heart-valve replacement; Z98.890 Other specified postprocedural states; Z98.62 Peripheral vascular angioplasty status; Z79.899 Other long term (current) drug therapy
CPT/HCPCS: 36415; 80048-TC; 84484-TC; 85025-TC; 85730-TC; 93971-TC

== ENCOUNTER 2020-06-28 12:47 | Outpatient (CLI) | payer MEDICARE, OTHER | END 2020-06-28 23:59 | disposition home health service (06) | LOC: WOU 12:47 | PROVIDERS: ATTEND Podiatrist Foot & Ankle Surgery | DX: I87.311 Chronic venous hypertension (idiopathic) with ulcer of right lower extremity (principal); L97.812 Non-pressure chronic ulcer of other part of right lower leg with fat layer exposed; E11.51 Type 2 diabetes mellitus with diabetic peripheral angiopathy without gangrene; E11.42 Type 2 diabetes mellitus with diabetic polyneuropathy; I87.2 Venous insufficiency (chronic) (peripheral); R60.0 Localized edema; I10 Essential (primary) hypertension; Z79.02 Long term (current) use of antithrombotics/antiplatelets; Z79.899 Other long term (current) drug therapy | CPT/HCPCS: 15271; A6452; Q4133 ==

== ENCOUNTER 2020-07-05 12:45 | Outpatient (CLI) | payer MEDICARE, OTHER | END 2020-07-05 23:59 | disposition home health service (06) | LOC: WOU 12:45 | PROVIDERS: ATTEND Podiatrist Foot & Ankle Surgery | DX: I87.311 Chronic venous hypertension (idiopathic) with ulcer of right lower extremity (principal); L97.812 Non-pressure chronic ulcer of other part of right lower leg with fat layer exposed; I87.2 Venous insufficiency (chronic) (peripheral); E11.42 Type 2 diabetes mellitus with diabetic polyneuropathy; E11.51 Type 2 diabetes mellitus with diabetic peripheral angiopathy without gangrene; R60.0 Localized edema; I10 Essential (primary) hypertension; Z79.02 Long term (current) use of antithrombotics/antiplatelets; Z79.899 Other long term (current) drug therapy | CPT/HCPCS: 15271; A6452; Q4133 ==

== ENCOUNTER 2020-07-12 12:50 | Outpatient (CLI) | payer MEDICARE, OTHER ==
[2020-07-12] MEDS ORDERED: LIDOCAINE SOLN 4% 50 ML BOTTLE ONE (13:21)
== END 2020-07-12 23:59 | disposition home health service (06) ==
LOC: WOU 12:50
PROVIDERS: ATTEND Podiatrist Foot & Ankle Surgery
DX: I87.311 Chronic venous hypertension (idiopathic) with ulcer of right lower extremity (principal); L97.812 Non-pressure chronic ulcer of other part of right lower leg with fat layer exposed; I87.2 Venous insufficiency (chronic) (peripheral); E11.51 Type 2 diabetes mellitus with diabetic peripheral angiopathy without gangrene; Z79.02 Long term (current) use of antithrombotics/antiplatelets; R60.0 Localized edema; Z79.899 Other long term (current) drug therapy; I10 Essential (primary) hypertension
CPT/HCPCS: 15271; A6452; Q4133

== ENCOUNTER 2020-07-19 12:45 | Outpatient (CLI) | payer MEDICARE, OTHER ==
[2020-07-19] MEDS ORDERED: LIDOCAINE SOLN 4% 50 ML BOTTLE ONE (12:53)
== END 2020-07-19 23:59 | disposition home health service (06) ==
LOC: WOU 12:45
PROVIDERS: ATTEND Podiatrist Foot & Ankle Surgery
DX: I87.311 Chronic venous hypertension (idiopathic) with ulcer of right lower extremity (principal); L97.812 Non-pressure chronic ulcer of other part of right lower leg with fat layer exposed; I87.2 Venous insufficiency (chronic) (peripheral); E11.51 Type 2 diabetes mellitus with diabetic peripheral angiopathy without gangrene; R60.0 Localized edema; I10 Essential (primary) hypertension; E78.5 Hyperlipidemia, unspecified; Z79.02 Long term (current) use of antithrombotics/antiplatelets; Z79.899 Other long term (current) drug therapy
CPT/HCPCS: 15271; A6452; Q4133

== ENCOUNTER 2020-07-26 12:45 | Outpatient (CLI) | payer MEDICARE, OTHER ==
[2020-07-26] MEDS ORDERED: LIDOCAINE SOLN 4% 50 ML BOTTLE ONE (12:53)
[2020-07-26] MEDS ORDERED: UREA 10% -AHA 4% CREAM 57 GM TUBE ONE (13:25)
== END 2020-07-26 23:59 | disposition home health service (06) ==
LOC: WOU 12:45
PROVIDERS: ATTEND Podiatrist Foot & Ankle Surgery
DX: I87.311 Chronic venous hypertension (idiopathic) with ulcer of right lower extremity (principal); L97.812 Non-pressure chronic ulcer of other part of right lower leg with fat layer exposed; E11.42 Type 2 diabetes mellitus with diabetic polyneuropathy; E11.51 Type 2 diabetes mellitus with diabetic peripheral angiopathy without gangrene; I87.2 Venous insufficiency (chronic) (peripheral); R60.0 Localized edema; I10 Essential (primary) hypertension; E78.5 Hyperlipidemia, unspecified; Z79.02 Long term (current) use of antithrombotics/antiplatelets; Z79.899 Other long term (current) drug therapy
CPT/HCPCS: 11042; A6209; A6452

== ENCOUNTER 2020-08-02 12:40 | Outpatient (CLI) | payer MEDICARE, OTHER | END 2020-08-02 23:59 | disposition home health service (06) | LOC: WOU 12:40 | PROVIDERS: ATTEND Podiatrist Foot & Ankle Surgery | DX: I87.311 Chronic venous hypertension (idiopathic) with ulcer of right lower extremity (principal); L97.812 Non-pressure chronic ulcer of other part of right lower leg with fat layer exposed; I87.2 Venous insufficiency (chronic) (peripheral); E11.51 Type 2 diabetes mellitus with diabetic peripheral angiopathy without gangrene; E11.42 Type 2 diabetes mellitus with diabetic polyneuropathy; R60.0 Localized edema; Z79.02 Long term (current) use of antithrombotics/antiplatelets | CPT/HCPCS: 11042; A6452 ==

== ENCOUNTER 2020-08-09 12:35 | Outpatient (CLI) | payer MEDICARE, OTHER | END 2020-08-09 23:59 | disposition home health service (06) | LOC: WOU 12:35 | PROVIDERS: ATTEND Podiatrist Foot & Ankle Surgery | DX: I87.311 Chronic venous hypertension (idiopathic) with ulcer of right lower extremity (principal); L97.812 Non-pressure chronic ulcer of other part of right lower leg with fat layer exposed; I87.2 Venous insufficiency (chronic) (peripheral); E11.42 Type 2 diabetes mellitus with diabetic polyneuropathy; E11.51 Type 2 diabetes mellitus with diabetic peripheral angiopathy without gangrene; R60.0 Localized edema; I10 Essential (primary) hypertension; E78.5 Hyperlipidemia, unspecified; Z79.02 Long term (current) use of antithrombotics/antiplatelets; Z79.899 Other long term (current) drug therapy | CPT/HCPCS: 15271; A6452; Q4133 ==

== ENCOUNTER 2020-08-16 12:45 | Outpatient (CLI) | payer MEDICARE, OTHER ==
[2020-08-16] MEDS ORDERED: UREA 10% -AHA 4% CREAM 57 GM TUBE ONE (13:19)
== END 2020-08-16 23:59 | disposition home health service (06) ==
LOC: WOU 12:45
PROVIDERS: ATTEND Podiatrist Foot & Ankle Surgery
DX: I87.2 Venous insufficiency (chronic) (peripheral) (principal); E11.51 Type 2 diabetes mellitus with diabetic peripheral angiopathy without gangrene; R60.0 Localized edema; I10 Essential (primary) hypertension; Z79.02 Long term (current) use of antithrombotics/antiplatelets; Z79.899 Other long term (current) drug therapy
CPT/HCPCS: G0463

== ENCOUNTER 2020-08-24 13:28 | Emergency (ER) | payer MEDICARE, OTHER ==
[~2020-08-24] VITALS: Ht 152.4 cm; Wt 73.9 kg
--- NOTE | 2020-08-24 14:20 | NUR ---
LOWER BACK PAIN R/T BLE PAIN, PRESCRIBED BACLOFEN WEDNESDAY FAMILY STATES NEW MEDS MAKING HER DISORIENTED. PATIENT A/OX4, BREATHING EVEN AND UNLABORED, NO SOB NOTED, NEEDS ATTENDED, KEPT COMFORTABLE.
[2020-08-24] MEDS ORDERED: HYDROCODONE/APAP 5/325MG TABLET ONE (15:02)
[2020-08-24] MEDS: HYDROCODONE/APAP 5/325MG TABLET PO ONE (15:09)
[2020-08-24 15:38] LABS: BASOPHILS # (AUTO) 0.1 /CMM (0.0-0.2); BASOPHILS % (AUTO) 0.8 % (0.0-2.0); HEMATOCRIT 38 % (33-45); HEMOGLOBIN 12.4 g/dL (11.5-14.8); LYMPHOCYTES # (AUTO) 1.8 /CMM (0.8-4.8); LYMPHOCYTES % (AUTO) 20.3 % (20.0-44.0); MEAN CORPUSCULAR HGB CONC 33 g/dl (31.0-36.0); MEAN CORPUSCULAR VOLUME 91 fL (82-100); MONOCYTES # (AUTO) 0.6 /CMM (0.1-1.30); MONOCYTES % (AUTO) 6.8 % (2.0-12.0); NEUTROPHILS # (AUTO) 6.1 /CMM (1.8-8.9); NEUTROPHILS % (AUTO) 69.1 % (43.0-81.0); PLATELET COUNT (AUTO) 126 /CMM (150-450); RED BLOOD CELL COUNT(AUTO) 4.14 MIL/uL (4.0-5.2); WHITE BLOOD COUNT (AUTO) 8.8 K/uL (4.3-11.0)
[2020-08-24 15:48] LABS: APPEARANCE,URINE Clear (CLEAR); BILIRUBIN,URINE Negative (NEGATIVE); BLOOD, URINE Negative Ery/uL (NEGATIVE); COLOR,URINE Yellow (YELLOW); KETONES,URINE Negative (NEGATIVE); LEUKOCYTE ESTERASE ,URINE Negative (NEGATIVE); NITRITE, URINE Negative (NEGATIVE); PH,URINE 6.5 (5.0-8.0); PROTEIN,URINE 100 mg/dl (NEGATIVE); UGLUCOSE Negative (NEGATIVE); UROBILINOGEN,URINE 0.2 EU/dL (0.2)
[2020-08-24 15:48] LABS: CALCIUM, SERUM 9.5 mg/dL (8.5-10.1); CREATININE 1.2 mg/dL (0.6-1.3); POTASSIUM 4.2 mmol/L (3.5-5.1)
[2020-08-24 15:55] LABS: ALBUMIN 3.1 g/dL (3.4-5.0); BILIRUBIN,DIRECT 0.1 mg/dL (0.0-0.2); BILIRUBIN,TOTAL 0.5 mg/dL (0.2-1.0); TOTAL PROTEIN, SERUM 7.4 g/dL (6.4-8.2)
--- NOTE | 2020-08-24 17:59 | NUR ---
Patient's pain has improved, ambulatory with a walker. Patient discharged to home in stable condition. Written and verbal after care instructions given. Patient verbalizes understanding of instruction.
[2020-08-24 18:05] VITALS: BP 154/99
== END 2020-08-24 18:05 | disposition home or self-care (01) ==
LOC: ER 13:29
DX: M48.061 Spinal stenosis, lumbar region without neurogenic claudication (principal); M51.36 Other intervertebral disc degeneration, lumbar region; I10 Essential (primary) hypertension; E11.9 Type 2 diabetes mellitus without complications; Z98.890 Other specified postprocedural states; Z79.899 Other long term (current) drug therapy
CPT/HCPCS: 36415; 72131-TC; 80048-TC; 80076-TC; 81000-TC; 83690-TC; 85025-TC

== ENCOUNTER 2020-09-20 12:45 | Outpatient (CLI) | payer MEDICARE, OTHER | END 2020-09-20 23:59 | disposition home or self-care (01) | LOC: WOU 12:45 | PROVIDERS: ATTEND Podiatrist Foot & Ankle Surgery | DX: E11.621 Type 2 diabetes mellitus with foot ulcer (principal); L97.512 Non-pressure chronic ulcer of other part of right foot with fat layer exposed; E11.42 Type 2 diabetes mellitus with diabetic polyneuropathy; E11.51 Type 2 diabetes mellitus with diabetic peripheral angiopathy without gangrene; I87.2 Venous insufficiency (chronic) (peripheral); R60.0 Localized edema; Z79.02 Long term (current) use of antithrombotics/antiplatelets | CPT/HCPCS: 11042 ==